=== PATIENT | male | born 1960 | race Asian ===

== ENCOUNTER 2017-09-09 10:40 | Emergency (ER) | payer BC ==
--- NOTE | 2017-09-09 10:49 | ERPHSYRPT ---
- History of Present Illness Time Seen by Provider: 09/09/17 10:44 Historian: patient Exam Limitations: no limitations Physician History: The patient is a 57-year-old male complaining of a sudden onset of chest pain, shortness of breath, and sweating that occurred while he was lifting weights at the fitness center. He quit working out immediately. A nurse was on the scene within a few minutes as well as the ambulance. He had a witnessed seizure that lasted 30 seconds. His past medical history is significant for hypertension and AAA. He has coronary artery disease. He has never had a seizure before. Timing/Duration: today Activities at Onset: activity Quality: sharpness Location: substernal Chest Pain Radiation: no radiation Severity of Pain-Max: severe Severity of Pain-Current: severe Modifying Factors: Improves With: nothing Associated Symptoms: nausea, abdominal pain, shortness of breath, diaphoresis Nitro Today/Relief: no nitro taken today Aspirin Treatment Today: 81 mg x 4, provided at home, provided by ED Allergies/Adverse Reactions: No Known Drug Allergies Allergy (Unverified 05/11/12 05:04) Home Medications: Aspir 81 05/11/12 [History] Hx Tetanus, Diphtheria Vaccination/Date Given: Yes Hx Influenza Vaccination/Date Given: Yes Hx Pneumococcal Vaccination/Date Given: Yes - Review of Systems Constitutional: No Fever, No Chills Eyes: No Symptoms Ears, Nose, & Throat: No Symptoms Respiratory: Dyspnea Cardiac: Chest Pain Abdominal/Gastrointestinal: Nausea Genitourinary Symptoms: No Dysuria Musculoskeletal: No Back Pain, No Neck Pain Skin: Other (diaphoresis) Neurological: Seizure Psychological: No Symptoms Endocrine: No Symptoms Hematologic/Lymphatic: No Symptoms Immunological/Allergic: No Symptoms All Other Systems: Reviewed and Negative - Past Medical History Neurological History: No Pertinent History ENT History: No Pertinent History Cardiac History: High Cholesterol Respiratory History: No Pertinent History Endocrine Medical History: No Pertinent History Musculoskeletal History: No Pertinent History GI Medical History: No Pertinent History History: No Pertinent History Psycho-Social History: No Pertinent History Male Reproductive Disorders: No Pertinent History - Past Surgical History Past Surgical History: No - Social History Smoking Status: Never smoker Exposure to second hand smoke: No Drug Use: none Patient Lives Alone: No - Nursing Vital Signs Nursing Vital Signs: Initial Vital Signs Pulse Rate 54 L 09/09/17 10:41 Respiratory Rate 22 09/09/17 10:41 Blood Pressure 100/46 09/09/17 10:41 O2 Sat by Pulse Oximetry 100 09/09/17 10:41 Pain Scale Pain Intensity 5 - Physical Exam General Appearance: severe distress, anxiety Eye Exam: PERRL/EOMI, eyes nml inspection Ears, Nose, Throat Exam: normal ENT inspection, moist mucous membranes Respiratory Exam: lungs clear, airway intact Cardiovascular Exam: bradycardia Gastrointestinal/Abdomen Exam: tenderness (epigastric) Rectal Exam: not done Extremity Exam: normal inspection, normal range of motion Neurologic Exam: alert, oriented x 3, cooperative, normal mood/affect, sensation nml, No motor deficits Skin Exam: diaphoresis SpO2 Interpretation: normal Oxygen Delivery: Room Air - Course EKG Interpreted by Me: RATE, Sinus Xu, Ischemic ST-T changes (V5) Ordered Tests: Active Orders 24 hr Category Date Time Status Electron Microprobe Operator STAT Care 09/09/17 10:54 Ordered EKG-ER Only STAT Care 09/09/17 10:53 Ordered IV Insertion STAT Care 09/09/17 10:53 Ordered IV Insertion-2nd Peripheral STAT Care 09/09/17 11:04 Active Oxygen-ED Only NON-REBREATHER 100% Care 09/09/17 11:05 Active Pulse Oximetry (ED) STAT Care 09/09/17 10:53 Ordered CHEST 1 VIEW (PORTABLE) Stat Exams 09/09/17 10:54 Ordered CBC W DIFF Stat Lab 09/09/17 10:53 Ordered CK-Creatinine Phosphokinase Stat Lab 09/09/17 10:53 Ordered CMP Stat Lab 09/09/17 10:53 Ordered PROTIME WITH INR Stat Lab 09/09/17 10:53 Ordered TROPONIN Q3H Lab 09/09/17 11:00 Ordered TROPONIN Q3H Lab 09/09/17 14:00 Ordered TROPONIN Q3H Lab 09/09/17 17:00 Ordered TROPONIN Q3H Lab 09/09/17 20:00 Ordered TROPONIN Q3H Lab 09/09/17 23:00 Ordered Medication Summary Discontinued Medications Generic Name Dose Route Start Last Admin Trade Name Freq PRN Reason Stop Dose Admin Morphine Sulfate 2 mg 09/09/17 10:53 Morphine Sulfate 2 Mg Inj IV 09/09/17 10:54 STAT ONE Morphine Sulfate Confirm 09/09/17 11:02 Morphine Sulfate 4 Mg Inj Administered 09/09/17 11:03 Dose 4 mg .ROUTE .STK-MED ONE Nitroglycerin 0.4 mg 09/09/17 10:53 Nitrostat 0.4 Mg (Ed) SL 09/09/17 10:54 STAT ONE Nitroglycerin Confirm 09/09/17 11:02 Nitrostat 0.4 Mg (Ed) Administered 09/09/17 11:03 Dose 0.4 mg SL .STK-MED ONE Ondansetron HCl 4 mg 09/09/17 10:53 Zofran 4 Mg/2 Ml Vial IV 09/09/17 10:54 STAT ONE Ondansetron HCl Confirm 09/09/17 11:02 Zofran 4 Mg/2 Ml Vial Administered 09/09/17 11:03 Dose 4 mg .ROUTE .STK-MED ONE - Progress Air Movement: good Blood Culture(s) Obtained: No Antibiotics given: No - Departure Time of Disposition: 11:11 Departure Disposition: Transfer ([facility] per Dr Khan.) Clinical Impression: ACS (acute coronary syndrome) Condition: Critical Critical Care Time: Yes Critical Care Time(excluding separately billable procedures): 30-74 minutes
[2017-09-09] MEDS ORDERED: Zofran 4 MG/2 ML VIAL IV ONE (10:53)
[2017-09-09] MEDS ORDERED: MORPHINE SULFATE 2 MG INJ IV ONE ×2 (10:53→11:22)
[2017-09-09] MEDS ORDERED: Nitrostat 0.4 MG (ED) SL ONE ×2 (10:53→11:02)
[2017-09-09] MEDS ORDERED: MORPHINE SULFATE 4 MG INJ ONE (11:02)
[2017-09-09] MEDS ORDERED: Zofran 4 MG/2 ML VIAL ONE (11:02)
[2017-09-09 11:05] VITALS: O2SAT 100
[2017-09-09 11:07] VITALS: BP 100/46
[2017-09-09 11:08] VITALS: PULSE 81
[2017-09-09 11:20] LABS: BASOPHIL % 0.3 % (0.0-0.4); Eosinophil % 2.1 % (0.00-5.0); Granulocytes % 58.4 % (36.0-66.0); Lymphocytes % 34.1 % (24.0-44.0); Mean Platelet Volume 9.3 fl (6-9.5); Monocytes % 5.1 % (0.0-12.0); Platelet Count 111 K/mm3 (150-450); Red Blood Count 3.79 M/mm3 (4.1-5.6); Red Cell Distribution Width 13.3 % (11.5-14.0); White Blood Count 6.7 K/mm3 (4.0-10.5)
[2017-09-09 11:26] LABS: INR 1.31 (0.8-3.0); PROTIME 14.6 SECONDS (8.83-12.87)
[2017-09-09 11:27] LABS: Mean Corpuscular Hemoglobin 31.3 pg (26-32)
--- NOTE | 2017-09-09 11:29 | XRAY ---
Indication: Chest pain and short of breath. Right arm and left leg weakness. Comparison: None Portable chest slightly underinflated with several overlying monitoring devices. There is left base haziness, infiltrate versus atelectasis. Remaining heart, lungs, and bony thorax unremarkable.
[2017-09-09] MEDS ORDERED: Sodium Chloride 0.9% 1000 ML 1,000 ML IV STA (11:32)
[2017-09-09 11:36] LABS: ALBUMIN 3.7 g/dL (3.4-5.0); ANION GAP 22.3 MEQ/L (5-15); BILIRUBIN,TOTAL 0.7 mg/dL (0.2-1.0); Carbon Dioxide 17.8 mEq/L (21-32); Potassium 3.6 mEq/L (3.5-5.1); Total Protein 6.8 gm/dL (6.4-8.2)
== END 2017-09-09 11:20 | disposition short-term general hospital (02) ==
LOC: ED 10:40
DX: I24.9 Acute ischemic heart disease, unspecified (principal); R07.89 Other chest pain; R06.02 Shortness of breath; R61 Generalized hyperhidrosis; Y93.B3 Activity, free weights; I10 Essential (primary) hypertension; I25.10 Atherosclerotic heart disease of native coronary artery without angina pectoris; E78.00 Pure hypercholesterolemia, unspecified
CPT/HCPCS: 36000; 36415; 71010; 80053; 82550; 84484; 85025; 85610; 93005; 93041; 96360; 96374; 96375; 99291; J2270; J2405; A9270-GY